=== PATIENT | female | born 2000 | race Two or more races ===

== ENCOUNTER 2020-07-06 17:11 | Emergency (ER) | payer SELFPAY ==
[2020-07-06 18:56] LABS: BILIRUBIN NEGATIVE (NEGATIVE); BLOOD NEGATIVE Ery/uL (NEGATIVE); CLARITY CLOUDY (CLEAR); COLOR YELLOW (YELLOW); GLUCOSE (U) NORMAL (NORMAL); LEUKOCYTES 1+ Leu/uL (NEGATIVE); NITRITE NEGATIVE (NEGATIVE); PROTEIN NEGATIVE (NEGATIVE); UROBILINOGEN 0.2 mg/dL (0.2-1.0)
[2020-07-06 19:02] LABS: AMORPHOUS URATES CRYSTALS MODERATE; BACTERIA TRACE; SQUAMOUS EPITHELIAL CELLS RARE
[2020-07-06 19:45] LABS: BASOPHIL 0.4 % (0-2); EOSINOPHIL 1.6 % (0-5); HCT 39.8 % (37.0-47.0); HGB 13.5 g/dl (12.5-16.0); LYMPHOCYTE 20.1 % (15-48); MCH 30.8 pg (25.0-31.0); MCHC 33.9 g/dL (32.0-36.0); MCV 90.9 fL (78.0-100.0); MONOCYTE 6.7 % (0-12); MPV 10.2 fL (6.0-9.5); NEUTROPHIL 70.9 % (41-80); NRBC 0; PLT 311 K/uL (150-400); RBC 4.38 M/uL (4.20-5.40); RDW 12.5 % (11.5-14.0); WBC 14.8 K/uL (4.0-10.5)
[2020-07-06 20:04] LABS: ALBUMIN 3.5 g/dL (3.4-5.0); BILIRUBIN - TOTAL 0.2 mg/dL (0.2-1.0); BUN/CREAT RATIO (CALC) 19.3 RATIO; CREATININE 0.57 mg/dL (0.51-0.95); GLOBULIN (CALCULATION) 3.6 g/dL; POTASSIUM 3.7 mmol/L (3.5-5.1); TOTAL PROTEIN 7.1 g/dL (6.4-8.2)
[2020-07-06 20:27] LABS: LACTIC ACID 0.8 mmol/L (0.4-1.9)
[2020-07-08 20:08] LABS: CHLAMYDIA TRACHOMATIS, NAA Negative (Negative); NEISSERIA GONORRHOEAE, NAA Negative (Negative)
== END 2020-07-06 22:38 | disposition home or self-care (01) ==
LOC: FER 17:11
PROVIDERS: Emergency Medicine; Nurse Practitioner Family
DX: O21.9 Vomiting of pregnancy, unspecified (principal); Z3A.09 9 weeks gestation of pregnancy
CPT/HCPCS: 36415; 76817; 80053; 81001; 83605; 84702; 85025; 87088; 87491; 87591; J7030

== ENCOUNTER 2020-07-16 02:10 | Emergency (ER) | payer OTHER ==
[2020-07-16 03:10] LABS: BILIRUBIN NEGATIVE (NEGATIVE); BLOOD 2+ Ery/uL (NEGATIVE); CLARITY CLEAR (CLEAR); COLOR YELLOW (YELLOW); GLUCOSE (U) NORMAL (NORMAL); LEUKOCYTES NEGATIVE Leu/uL (NEGATIVE); NITRITE NEGATIVE (NEGATIVE); PROTEIN NEGATIVE (NEGATIVE); SPECIFIC GRAVITY 1.025 (1.001-1.030); UROBILINOGEN 0.2 mg/dL (0.2-1.0); pH 6.5 (5.0-9.0)
[2020-07-16 03:17] LABS: BACTERIA TRACE
[2020-07-16 03:46] LABS: BASOPHIL 0.6 % (0-2); EOSINOPHIL 1.6 % (0-5); HCT 37.4 % (37.0-47.0); HGB 12.8 g/dl (12.5-16.0); LYMPHOCYTE 21.6 % (15-48); MCH 31.5 pg (25.0-31.0); MCHC 34.2 g/dL (32.0-36.0); MCV 92.1 fL (78.0-100.0); MONOCYTE 6.1 % (0-12); MPV 10.2 fL (6.0-9.5); NEUTROPHIL 69.8 % (41-80); NRBC 0; PLT 263 K/uL (150-400); RBC 4.06 M/uL (4.20-5.40); RDW 12.4 % (11.5-14.0); WBC 12.5 K/uL (4.0-10.5)
== END 2020-07-16 03:47 | disposition home or self-care (01) ==
LOC: FER 02:10
PROVIDERS: Emergency Medicine
DX: O03.9 Complete or unspecified spontaneous abortion without complication (principal)
CPT/HCPCS: 36415; 81001; 84702; 85025; 86900; 86901; 99284

== ENCOUNTER 2021-01-30 16:40 | Inpatient (IN) | payer MEDICAID ==
[~2021-01-30] VITALS: Ht 152.4 cm; Wt 68.9 kg
[2021-01-30 17:49] LABS: HCT 32.7 % (37.0-47.0); HGB 10.2 g/dl (12.5-16.0); MCH 25.8 pg (25.0-31.0); MCHC 31.2 g/dL (32.0-36.0); MCV 82.6 fL (78.0-100.0); MPV 11.2 fL (6.0-9.5); RBC 3.96 M/uL (4.20-5.40); RDW 14.5 % (11.5-14.0); WBC 11.2 K/uL (4.0-10.5)
[2021-01-30 17:54] LABS: BILIRUBIN NEGATIVE (NEGATIVE); BLOOD NEGATIVE Ery/uL (NEGATIVE); CLARITY CLEAR (CLEAR); COLOR YELLOW (YELLOW); GLUCOSE (U) NORMAL (NORMAL); LEUKOCYTES NEGATIVE Leu/uL (NEGATIVE); NITRITE NEGATIVE (NEGATIVE); PROTEIN NEGATIVE (NEGATIVE)
[2021-02-01 06:36] LABS: HCT 28.7 % (37.0-47.0); MCH 25.9 pg (25.0-31.0); MCHC 31.4 g/dL (32.0-36.0); MCV 82.5 fL (78.0-100.0); MPV 10.8 fL (6.0-9.5); RBC 3.48 M/uL (4.20-5.40); RDW 14.7 % (11.5-14.0); WBC 11.8 K/uL (4.0-10.5)
[2021-02-02] MEDS ORDERED: IBUPROFEN800 MG PO (07:11)
[2021-02-02] MEDS ORDERED: COLACE100 MG PO (07:11)
[2021-02-02] MEDS ORDERED: FEOSOL325 MG PO (07:11)
[2021-02-02] MEDS ORDERED: PRENATAL FORMU1 EACH PO (07:11)
== END 2021-02-02 18:20 | disposition home or self-care (01) | DRG 807 ==
LOC: FOD 16:40 → FOB 16:40 → FOD 01-31 12:16 → FOB 01-31 12:18
PROVIDERS: Obstetrics & Gynecology; ADMIT Specialist
PROC: 10D07Z6 Extraction of Products of Conception, Vacuum, Via Natural or Artificial Opening (ICD-10-PCS; principal; 2021-02-01)
PROC: 10907ZC Drainage of Amniotic Fluid, Therapeutic from Products of Conception, Via Natural or Artificial Opening (ICD-10-PCS; 2021-02-01)
PROC: 3E033VJ Introduction of Other Hormone into Peripheral Vein, Percutaneous Approach (ICD-10-PCS; 2021-02-01)
DX: O48.0 Post-term pregnancy (principal); Z37.0 Single live birth; O99.824 Streptococcus B carrier state complicating childbirth; Z3A.41 41 weeks gestation of pregnancy; Z20.822 Contact with and (suspected) exposure to COVID-19; O99.03 Anemia complicating the puerperium; D64.9 Anemia, unspecified
CPT/HCPCS: 36415; 81003; J2540; J7120; U0002